=== PATIENT | male | born 1970 | race Caucasian/White ===

== ENCOUNTER 2017-02-03 21:21 | Emergency (ER) | payer SELFPAY ==
[~2017-02-03] VITALS: Ht 167.6 cm; Wt 84.8 kg
[2017-02-03 21:37] VITALS: BP 129/93; Ht 167.6 cm; Wt 84.8 kg
== END 2017-02-04 00:16 | disposition home or self-care (01) ==
LOC: ED 21:21
DX: J20.9 Acute bronchitis, unspecified (principal)